=== PATIENT | female | born 1990 | race Caucasian/White ===

== ENCOUNTER 2023-01-08 06:00 | Inpatient (IN) | payer BC ==
[2023-01-08] MEDS ORDERED: NS w/ Oxytocin 30 units 500 ML ONE (07:05)
[2023-01-08] MEDS ORDERED: Ondansetron PF 4 MG/2 ML Vial IVP PRN ×3 (07:11→17:41)
[2023-01-08] MEDS ORDERED: ePHEDrine Sulfate 50 MG/10 ML VIAL SLOW IVP PRN (07:11)
[2023-01-08] MEDS ORDERED: Naloxone HCl 0.4 mg/ml Vial IVP PRN ×2 (07:11)
[2023-01-08] MEDS ORDERED: diphenhydrAMINE 50 MG/ML VIAL IVP PRN (07:11)
[2023-01-08] MEDS ORDERED: Promethazine HCl 25 MG/ML VIAL IM PRN ×2 (07:11→07:51)
[2023-01-08] MEDS ORDERED: Moisturizing Cream (Eucerin) 113 GM JAR TOP PRN (07:11)
[2023-01-08] MEDS ORDERED: Lactated Ringer's 500 ML IV PRN (07:11)
[2023-01-08] MEDS ORDERED: Acetaminophen 325 MG TAB PO PRN (07:11)
[2023-01-08] MEDS ORDERED: Fentanyl 2 mcg/Bupivacaine 0.1% Cassette 100 ML EPIDURAL SCH (07:15)
[2023-01-08] MEDS ORDERED: Communication Order-Pharmacy FS SCH (07:15)
[2023-01-08] MEDS ORDERED: NS w/ Oxytocin 30 units 500 ML IV SCH ×4 (07:51→17:45)
[2023-01-08] MEDS ORDERED: Butorphanol Tartrate 1 MG/ML VIAL SLOW IVP PRN (07:51)
[2023-01-08] MEDS ORDERED: hydrALAZINE 20 MG/ML VIAL SLOW IVP PRN ×2 (07:51→17:41)
[2023-01-08] MEDS ORDERED: Docusate 100 MG CAP PO PRN (07:51)
[2023-01-08] MEDS ORDERED: HYDROcodone/Acetaminophen 5/325 mg Tablet PO PRN ×4 (07:51→17:41)
[2023-01-08] MEDS ORDERED: Lidocaine 1% (PF) 30 ML VIAL SC PRN (07:51)
[2023-01-08] MEDS ORDERED: Ibuprofen 800 MG TAB PO PRN (07:51)
[2023-01-08] MEDS ORDERED: Carboprost 250 MCG/ML AMP IM PRN (07:51)
[2023-01-08] MEDS ORDERED: Acetaminophen 500 MG TAB PO PRN (07:51)
[2023-01-08] MEDS ORDERED: Diphenoxylate HCl/Atropine Tablet PO PRN ×2 (07:51)
[2023-01-08] MEDS ORDERED: Misoprostol 200 MCG TAB PR PRN (07:51)
[2023-01-08] MEDS ORDERED: Lactated Ringer's 1,000 ML IV SCH (07:51)
[2023-01-08] MEDS ORDERED: Fentanyl 2 mcg/Bup 0.1% Cadd 100 ML ONE (07:56)
[2023-01-08] MEDS ORDERED: ePHEDrine Sulfate 50 MG/10 ML VIAL ONE (08:00)
[2023-01-08] MEDS ORDERED: methylPREDNISolone Sod Succ 40 MG VIAL IVP SCH (08:00)
[2023-01-08] MEDS ORDERED: Bupivacaine 0.25% HCL 30 ML VIAL ONE (08:00)
[2023-01-08 08:04] LABS: Hemoglobin 10.6 g/dL (12.0-15.5); Mean Corpuscular HGB CONC 32.4 g/dL (32.0-36.0); Mean Corpuscular Hemoglobin 28.3 pg (27.0-33.0); Mean Corpuscular Volume 87.4 fl (81.6-98.3); Platelet Count 357 10x3/uL (150-450); RBC Distribution Width 13.2 % (11.5-14.5); Red Blood Cell (RBC) Count 3.74 10x6/uL (3.90-5.03); White Blood Cell (WBC) Count 9.8 10x3/uL (3.5-10.5)
[2023-01-08 09:01] LABS: HBSAg Index 0.15 S/CO (0-0.99); HIV (1/2) Antibody/Antigen Non-Reactive (NonReactive); Hep B Surf Ag - L&D Non-Reactive S/CO (NonReactive)
[2023-01-08 09:02] LABS: Syphilis Antibody Nonreactive (Nonreactive); Syphilis Antibody Index 0.03 S/CO (<1.00 Non-Reactive)
[2023-01-08] MEDS ORDERED: Zolpidem Tartrate 5 MG TAB PO PRN (17:41)
[2023-01-08] MEDS ORDERED: Boostrix 0.5 ML (Tdap) VIAL (>/=7 yrs of age) IM ONE (17:41)
[2023-01-08] MEDS ORDERED: diphenhydrAMINE 25 MG CAP PO PRN (17:41)
[2023-01-08] MEDS ORDERED: Lanolin Ointment 7 GM TUBE TOP PRN (17:41)
[2023-01-08] MEDS ORDERED: Milk Of Magnesia 30 ML UDCUP PO PRN (17:41)
[2023-01-08] MEDS ORDERED: Preparation H Ointment 28 GM TUBE PR PRN (17:41)
[2023-01-08] MEDS ORDERED: Benzocaine-Menthol 82.5 ML CAN TOP PRN (17:41)
[2023-01-08] MEDS ORDERED: Bisacodyl 10 MG SUPP PR PRN (17:41)
[2023-01-08] MEDS ORDERED: Misoprostol 200 MCG TAB VAG PRN (17:41)
[2023-01-08] MEDS ORDERED: methylPREDNISolone Sod Succ/PF 125 MG/2 ML VIAL IVP SCH (17:45)
[2023-01-09] MEDS: Ibuprofen 800 MG TAB PO SCH ×4 (00:36→21:53)
[2023-01-09] MEDS: Docusate 100 MG CAP PO SCH ×3 (00:36→21:53)
[2023-01-09 05:29] VITALS: BMI 30.5
[2023-01-09 07:22] LABS: Hemoglobin 9.5 g/dL (12.0-15.5); Mean Corpuscular HGB CONC 33.3 g/dL (32.0-36.0); Mean Corpuscular Hemoglobin 29.1 pg (27.0-33.0); Mean Corpuscular Volume 87.4 fl (81.6-98.3); Mean Platelet Volume 9.9 fl (7.4-10.4); Platelet Count 318 10x3/uL (150-450); RBC Distribution Width 13.1 % (11.5-14.5); Red Blood Cell (RBC) Count 3.26 10x6/uL (3.90-5.03); White Blood Cell (WBC) Count 12.6 10x3/uL (3.5-10.5)
[2023-01-09] MEDS: Ferrous Sulfate 325 MG TAB PO SCH ×2 (08:25→16:46)
[2023-01-09] MEDS: Prenatal Vitamin 1 TAB PO SCH (08:26)
[2023-01-10] MEDS: Ibuprofen 800 MG TAB PO SCH (05:07)
[2023-01-10] MEDS: Ferrous Sulfate 325 MG TAB PO SCH (07:43)
[2023-01-10] MEDS: Docusate 100 MG CAP PO SCH (07:43)
[2023-01-10] MEDS: Prenatal Vitamin 1 TAB PO SCH (07:43)
[2023-01-10 07:48] VITALS: BP 110/69; TEMP 98.4
== END 2023-01-10 13:05 | disposition home or self-care (01) | DRG 807 ==
LOC: CSHLD 06:03 → CSHPED 20:45
PROVIDERS: ADMIT Obstetrics & Gynecology; ATTEND Obstetrics & Gynecology
PROC: 10E0XZZ Delivery of Products of Conception, External Approach (ICD-10-PCS; principal; 2023-01-08)
DX: O26.86 Pruritic urticarial papules and plaques of pregnancy (PUPPP) (principal); Z37.0 Single live birth; Z3A.39 39 weeks gestation of pregnancy; O36.63X0 Maternal care for excessive fetal growth, third trimester, not applicable or unspecified; D64.9 Anemia, unspecified; F32.A Depression, unspecified; F41.9 Anxiety disorder, unspecified; O99.343 Other mental disorders complicating pregnancy, third trimester; O99.353 Diseases of the nervous system complicating pregnancy, third trimester; O99.013 Anemia complicating pregnancy, third trimester; G43.909 Migraine, unspecified, not intractable, without status migrainosus; Z79.899 Other long term (current) drug therapy; Z88.0 Allergy status to penicillin
CPT/HCPCS: 36415; 51702; 85027; 86780; 86850; 86900; 86901; 87340; 87389; J2590; J2930; S0020

== ENCOUNTER 2024-09-02 09:36 | Inpatient (IN) | payer OTHER ==
[~2024-09-02 09:36] MED LIST: Bupivacaine 0.25% HCL 30 ML VIAL ONE
[2024-09-02] MEDS ORDERED: Diphenoxylate HCl/Atropine Tablet PO PRN ×2 (09:38)
[2024-09-02] MEDS ORDERED: Promethazine HCl 25 MG/ML VIAL IM PRN ×2 (09:38→10:52)
[2024-09-02] MEDS ORDERED: Docusate 100 MG CAP PO PRN (09:38)
[2024-09-02] MEDS ORDERED: hydrALAZINE 20 MG/ML VIAL SLOW IVP PRN (09:38)
[2024-09-02] MEDS ORDERED: HYDROcodone/Acetaminophen 5/325 mg Tablet PO PRN ×2 (09:38)
[2024-09-02] MEDS ORDERED: Misoprostol 200 MCG TAB PR PRN (09:38)
[2024-09-02] MEDS ORDERED: Methylergonovine 0.2 MG/ML VIAL IM PRN (09:38)
[2024-09-02] MEDS ORDERED: Carboprost 250 MCG/ML AMP IM PRN (09:38)
[2024-09-02] MEDS ORDERED: Lidocaine 1% (PF) 30 ML VIAL SC PRN (09:38)
[2024-09-02] MEDS ORDERED: Ondansetron PF 4 MG/2 ML Vial IVP PRN ×2 (09:38→10:52)
[2024-09-02] MEDS ORDERED: fentaNYL 50 mcg/mL 1 mL Vial SLOW IVP PRN (09:38)
[2024-09-02] MEDS ORDERED: Oxytocin 30 units/NS 500 ML 500 ML IV SCH ×3 (09:45)
[2024-09-02 10:37] LABS: Hematocrit 36.2 % (34.9-44.5); Mean Corpuscular HGB CONC 33.1 g/dL (32.0-36.0); Mean Corpuscular Hemoglobin 28.6 pg (27.0-33.0); Mean Corpuscular Volume 86.4 fL (81.6-98.3); Mean Platelet Volume 10.5 fL (7.4-10.4); Platelet Count 325 10x3/uL (150-450); RBC Distribution Width 13.6 % (11.5-14.5); Red Blood Cell (RBC) Count 4.19 10x6/uL (3.90-5.03); White Blood Cell (WBC) Count 10.2 10x3/uL (3.5-10.5)
[2024-09-02] MEDS ORDERED: Moisturizing Cream (Eucerin) 113 GM JAR TOP PRN (10:52)
[2024-09-02] MEDS ORDERED: ePHEDrine Sulfate 50 MG/10 ML VIAL SLOW IVP PRN (10:52)
[2024-09-02] MEDS ORDERED: Acetaminophen 325 MG TAB PO PRN (10:52)
[2024-09-02] MEDS ORDERED: diphenhydrAMINE 50 MG/ML VIAL IVP PRN (10:52)
[2024-09-02] MEDS ORDERED: Lactated Ringer's 500 ML IV PRN (10:52)
[2024-09-02] MEDS ORDERED: Naloxone HCl 0.4 mg/ml Vial IVP PRN ×2 (10:52)
[2024-09-02] MEDS ORDERED: fentaNYL 2 mcg/Ropivacaine 0.2% Epidural 100 ML CADD EPIDURAL SCH (11:00)
[2024-09-02] MEDS ORDERED: Communication Order-Pharmacy FS SCH (11:00)
[2024-09-02] MEDS: fentaNYL/Ropivacaine Epidural 100 ML ONE (11:26)
[2024-09-02 11:43] LABS: HBsAg Index 0.18 S/CO (0-0.99); HIV (1/2) Antibody/Antigen Non-Reactive (NonReactive); HIV 1/2 INDEX 0.09 S/CO (<1.00); Hep B Surf Ag - L&D Non-Reactive S/CO (NonReactive)
[2024-09-02 12:20] LABS: Syphilis Antibody Nonreactive (Nonreactive); Syphilis Antibody Index 0.04 S/CO (<1.00 Non-Reactive)
[2024-09-02] MEDS: Lactated Ringer's 1,000 ML IV SCH (21:35)
[2024-09-02] MEDS: Ibuprofen 800 MG TAB PO PRN (22:15)
[2024-09-03] MEDS: Acetaminophen 500 MG TAB PO PRN (05:17)
[2024-09-03 11:50] VITALS: BP 122/74; TEMP 97.9
[2024-09-03] MEDS: Ibuprofen 800 MG TAB PO SCH (13:26)
== END 2024-09-03 18:00 | disposition home or self-care (01) | DRG 807 ==
LOC: CSHLD 09:36 → CSHPP 20:00
PROVIDERS: ADMIT Obstetrics & Gynecology; ATTEND Obstetrics & Gynecology
PROC: 10E0XZZ Delivery of Products of Conception, External Approach (ICD-10-PCS; principal; 2024-09-02)
DX: O42.02 Full-term premature rupture of membranes, onset of labor within 24 hours of rupture (principal); Z37.0 Single live birth; Z3A.39 39 weeks gestation of pregnancy; O09.523 Supervision of elderly multigravida, third trimester; O99.02 Anemia complicating childbirth; Z88.0 Allergy status to penicillin; O26.86 Pruritic urticarial papules and plaques of pregnancy (PUPPP)
CPT/HCPCS: 36415; 51702; 85027; 86780; 86850; 86900; 86901; 87340; 87389; 99285; J0665